=== PATIENT | male | born 1945 | race Caucasian/White ===

== ENCOUNTER → 2016-05-04 | Day surgery (SDC) | payer OTHER, MEDICARE ==
[~2016-05-04] VITALS: Ht 160 cm; Wt 66.8 kg
[~2016-05-04] MED LIST: ACETAMINOPHEN 325 MG TAB PO PRN; ATROPINE SULFATE 0.1 MG/ML 5ML SYR IV PRN; CARV12.52 PO; FENTANYL CITRATE INJ 50 MCG/1 ML 2 ML VIAL ONE; GLC/500 PO; LISI-461 PO; METOPROLOL TARTRATE 1 MG/ML VIAL ONE; MIDAZOLAM HCL 1 MG/ML 2ML VIAL ONE; ONDANSETRON INJ 2 MG/ML 2 ML VIAL IV PRN; PROM1SUP19 PR; SILD50TA PO; SODIUM CHLORIDE 0.9% 1000ML 1,000 ML IV SCH; SODIUM CHLORIDE 0.9% 1000ML 250 ML IV PRN
[2016-05-04 07:34] VITALS: Ht 160 cm; Wt 66.8 kg
[2016-05-04 07:38] VITALS: BP 157/97; PULSE 75; TEMP 36.5; O2SAT 98
--- NOTE | 2016-05-04 08:57 | History & Physical Bridge Note ---
H&P Re-Evaluation Bridge Note: I have examined the patient, reviewed the History & Physical and in the interval since the performance of the History & Physical I have noted the following changes of clinical significance: No changes noted
--- NOTE | 2016-05-04 09:14 | Cardiac Catheterization ---
Procedure Note Procedure Date May 04, 2016. Pre-Procedure Diagnosis Valvular Disease AUC Score 9 Post-Procedure Diagnosis Severe CAD, Normal Intracardiac Pressures, Cardiothoracic Finding (Severe ) Procedure(s) Performed Left Heart Cath, Right Heart Cath, LV Angiography, Aortography Viscosity Tester Dr. 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 ACC Data Cardiac Status Clinical evaluation leading to the procedure CAD Presntation: Sx unlikely to be ischemic Anginal Classification: CCS III Heart Failure: No Cardiogenic Shock w/in 24Hrs: No Cardiac Arrest w/in 24Hrs: No Imaging studies past 6 months: Yes Stress studies past 6 months: No Standard Exercise Stress Test: No Stress Echocardiogram: No Stress Testing w/SPECT MPI: No Cardiac CTA: No Coronary Anatomy Dominant: Co-dominant Left Main (% Stenosis): Normal LAD (% Stenosis): Ostial (95) OM1 (% Stenosis): Proximal (95) OM2 (% Stenosis): Mid (50) RCA (% Stenosis): Mid (60), Distal (50) Left Ventricular Angiography EF (%): 60 Aortography Aortic Regurgitation: None Diagnostic Status: Elective Closure Device Percutaneous Entry Location: Femoral Closure Device: Mynx Recommendations: CABG, valve replacement
--- NOTE | 2016-05-04 09:18 | Discharge Instructions ---
Discharge Instructions Procedure Procedure Date: May 04, 2016. Reason for Visit: Severe Aortic Stenosis *Dr Duron To Do*. Discharge Discharge Date: May 04, 2016. Discharge Diagnosis: aortic stenosis and coronary artery disease Last Recorded Wt (Kilograms): 66.8 Anesthesia Post Anesthesia Instructions: If you have had General Anesthesia or IV Sedation: * Do not drive today. * Resume driving when surgeon permits. * Do not make important decisions or sign legal documents today. * Call surgeon for: 1. Temperature elevations greater than 101 degrees F. 2. Uncontrollable pain. 3. Excessive bleeding. 4. Persistent nausea and vomiting. 5. Medication intolerance (nausea, vomiting or rash). * For nausea and vomiting use only clear liquids such as: tea, soda, bouillon until nausea subsides, then gradually increase diet as tolerated. * If you have any concerns or questions, call your surgeon's office. If physician is unavailable and it is an emergency, call 911 or go to the nearest emergency room. Instructions Activity Recommendations: no limitations Recommended Home Diet: resume previous diet Provider Instructions ACTIVITY RECOMMENDATIONS: It is common to feel weak and fatigue for a few days. * Do not drive or operate any motorized equipment for the next three days. * Limit stair usage (2 or 3 trips a day only) for the next three days. * Do not lift anything heavier than 10 pounds for the next three days. * Do not engage in vigorous exercise or any sports for the next five days. * You may shower the day after your procedure, but do not immerse the area for three days. Cleanse the site gently with soap and water. SPECIAL CARE INSTRUCTIONS: * You may replace the pressure dressing or band-aid the morning after the procedure. * After your procedure, it is normal to have a small bruise or small lump at the site. Examine your site daily for any change in the bruise or lump, redness, swelling, drainage or numbness. Notify your doctor if any change. BLEEDING: * If there is a small amount of bleeding at the site, lie down and apply firm pressure with a clean cloth for ten minutes. When the bleeding stops, lie quietly keeping the procedure limb straight for six hours. Notify your doctor as soon as possible. * If the bleeding does not stop after ten minutes or if there is a large amount of bleeding or spurting, call 911 immediately. Continue to lie down and hold firm pressure until help arrives. SKIN IRRITATION: * You may experience some redness and/or swelling in the area where radiation was administered. If any skin irritation occurs, please contact your family physician. FOLLOW UP VISIT: Keep any scheduled doctor appointments. Follow Up Follow-up with: Dr. Herman at [facility] 05/05/16, will be called with a time [place] Recommendations: Call your doctor if: * Temperature above 101 degrees * Pain not relieved by pain medicine ordered * There is increased drainage or redness from any incision * You have any unanswered questions or concerns. Your Doctors Instructions noted above were prepared by provider Anthony Duron. Patient Signature Section: Patient Instructions Signature Page oNrris Unger Patient (or Guardian) Signature/Date: I have read and understand the instructions given to me by my caregivers. Caregiver/RN/Doctor Signature/Date: The above-named patient and/or guardian has received patient instructions on this date. + Original Patient Signature Page (only) stays with chart. Please make copy for patient.
[2016-05-04 09:27] LABS: ISTAT ARTERIAL BLOOD GAS HCO3 24 meq/L (19-24); ISTAT ARTERIAL BLOOD GAS PCO2 40 mmHg (35-46); ISTAT ARTERIAL BLOOD GAS PO2 34 mmHg (80-95); ISTAT ARTERIAL BLOOD GAS pH 7.38 (7.35-7.45); ISTAT CARBON DIOXIDE 25 mEq/l (24-31)
[2016-05-04 09:27] LABS: ISTAT ARTERIAL BLOOD GAS HCO3 21 meq/L (19-24); ISTAT ARTERIAL BLOOD GAS PCO2 33 mmHg (35-46); ISTAT ARTERIAL BLOOD GAS PO2 62 mmHg (80-95); ISTAT ARTERIAL BLOOD GAS pH 7.42 (7.35-7.45); ISTAT CARBON DIOXIDE 22 mEq/l (24-31)
[2016-05-04 09:27] LABS: ISTAT ARTERIAL BLOOD GAS HCO3 23 meq/L (19-24); ISTAT ARTERIAL BLOOD GAS PCO2 36 mmHg (35-46); ISTAT ARTERIAL BLOOD GAS PO2 65 mmHg (80-95); ISTAT ARTERIAL BLOOD GAS pH 7.41 (7.35-7.45); ISTAT CARBON DIOXIDE 24 mEq/l (24-31)
--- NOTE | 2016-05-04 09:39 | CARDIAC CATH REPORT ---
PROCEDURE: 1. Left heart catheterization. 2. Right heart catheterization. 3. Coronary angiography. 4. Left ventriculography. 5. Aortography. HISTORY: This is a 70-year-old male patient who presented with dyspnea and activity related chest discomfort. He underwent an echocardiogram that revealed severe aortic stenosis. PROCEDURE SUMMARY: The patient was seen and evaluated in the holding area of the woven label designer. After informed consent was obtained, he was taken to the cardiac catheterization lab where he was prepped and draped in the usual manner for a right transfemoral approach. Preformed 5-[place] diagnostic catheters were utilized for the coronary angiograms. Preformed 5-[place] pigtail catheter was utilized for crossing the aortic valve and for the left ventriculogram and aortogram. A [place] catheter was utilized for right heart pressures and cardiac outputs. Following the procedure, the arterial site was closed utilizing a Mynx device. The patient then was returned to the holding area of the woven label designer in stable condition. HEMODYNAMIC DATA: Right atrial pressure is a mean of 9 mmHg, right ventricular pressure is 42/4 mmHg, pulmonary artery pressure is 34/12 mmHg, pulmonary capillary wedge pressure is a mean of 6 mmHg, left ventricular pressure is 165/9 mmHg, central aortic pressure is 119/67 mmHg. The cardiac output by thermal dilution is 4.1 liters per minute. The mean gradient across the aortic valve is 24.5 mmHg. The aortic valve area by Vic equation is 0.76 cm2 and by thermal dilution is 0.88 cm2. CORONARY ANGIOGRAPHY: Selective injections of the right coronary artery reveal it to be diffusely diseased in its proximal, mid, and distal segments. The mid segment is estimated to be 60% at its narrowest and the distal to be 50% at its narrowest. The right coronary artery is codominant with the left circumflex artery. Selective injections of the left coronary artery revealed the left main trunk to be patent. The ostium of the LAD is narrowed, reaching 95% stenosis. The left circumflex artery is codominant. The left circumflex artery has a large first marginal branch which has 95% narrowing in its proximal segment. The second marginal branch has a 50-60% narrowing in its proximal segment. LEFT VENTRICULOGRAM: The left ventricle is of normal size with normal systolic function. Mitral valve is competent. AORTOGRAPHY: The aortic root and ascending aorta are calcified, especially around the area of the aortic valve. There is no significant aortic insufficiency. SUMMARY: The patient has severe aortic stenosis with normal left ventricular function. The patient also has severe 3-vessel coronary artery disease. RECOMMENDATIONS: The patient is recommended to be evaluated for aortic valve replacement and coronary artery bypass surgery.
[2016-05-04 12:35] VITALS: BP 136/64; PULSE 64; O2SAT 98
== END | disposition home or self-care (01) ==
LOC: C.CATH 07:16
PROVIDERS: ATTEND Internal Medicine Interventional Cardiology
DX: I25.10 Atherosclerotic heart disease of native coronary artery without angina pectoris (principal); I35.0 Nonrheumatic aortic (valve) stenosis; I10 Essential (primary) hypertension; M17.9 Osteoarthritis of knee, unspecified; I51.9 Heart disease, unspecified; H91.90 Unspecified hearing loss, unspecified ear; E11.9 Type 2 diabetes mellitus without complications; Z87.891 Personal history of nicotine dependence